=== PATIENT | male | born 1970 | race Native Hawaiian/Other Pacific Islander ===

== ENCOUNTER 2016-10-21 16:17 | Inpatient (IN) | payer OTHER ==
[2016-10-21 16:33] VITALS: BMI 16.1
[2016-10-21] MEDS ORDERED: Dextrose 5%/0.9% NS 1,000 ML IV ONE ×2 (17:23→21:18)
[2016-10-21 17:44] LABS: ADD MANUAL DIFF? NO
--- NOTE | 2016-10-21 17:48 | RAD ---
PROCEDURE: CHEST RADIOGRAPH, 1 VIEW HISTORY: neck tumor COMPARISON: None available. FINDINGS: LUNGS: The lungs are clear. PLEURA: No pneumothorax or pleural fluid seen. CARDIOVASCULAR: Normal. OSSEOUS STRUCTURES: Small areas of sclerosis in the right humeral head are statistically most compatible with bone islands. Otherwise, the osseous structures are within normal limits for the patient's age. VISUALIZED UPPER ABDOMEN: Normal. OTHER FINDINGS: None. IMPRESSION: No acute findings.
[2016-10-21 17:53] LABS: BASO # 0.1 K/uL (0.0-0.2); EOS # 0.2 K/uL (0.0-0.7); EOS % 3.3 % (0.0-4.0); HEMATOCRIT 30.5 % (35.0-51.0); LYMPH # 1.6 K/uL (1.0-4.3); LYMPH % 22.4 % (20.0-40.0); MEAN CELL VOLUME 89.4 fL (80.0-94.0); MEAN CORPUSCULAR HEMOGLOBIN 29.7 pg (27.0-31.0); MEAN CORPUSCULAR HGB CONC 33.2 g/dL (33.0-37.0); MEAN PLATELET VOLUME 7.2 fL (7.2-11.7); MONO % 13.5 % (0.0-10.0); PLATELET COUNT 372 K/uL (130-400); RED CELL DISTRIBUTION WIDTH 14.7 % (11.5-14.5); WHITE BLOOD COUNT 7.4 K/uL (4.8-10.8)
--- NOTE | 2016-10-21 18:11 | C.PDOC ---
History Of Present Illness 46 y/o male presents to the ED complaining of progressive dysphagia x 2 months. He states he cannot swallow solids, he can only swallow liquids, and sometimes he spits out blood. Patient is from [place] where he reports that he saw an ENT doctor who told him it looked like there is a tumor in his throat. Because the patient does not have relatives in [place] he decided to come here for further medical care. Patient notes that he went to a hospital in [place] when he got here and was told that he needed immediate admission but he decided to come to [place] instead because his friends and relatives are here. Patient denies chest pain, shortness of breath, or other complaints. Time Seen by Provider: 10/21/16 17:07 Chief Complaint (Nursing): ENT Problem History Per: Patient History/Exam Limitations: no limitations Onset/Duration Of Symptoms: Days (60), Persistent Current Symptoms Are (Timing): Still Present Recent travel outside of the [facility]: No Past Medical History Reviewed: Historical Data, Nursing Documentation, Vital Signs Vital Signs: Last Vital Signs Temp 98.3 F 10/21/16 16:32 Pulse 79 10/21/16 16:32 Resp 18 10/21/16 16:32 BP 124/87 10/21/16 16:32 Pulse Ox 100 10/21/16 18:16 - Medical History PMH: Fractures (hand) Other Surgeries: right kidney transplant Family History: States: No Known Family Hx - Social History Hx Tobacco Use: No Hx Alcohol Use: No Hx Substance Use: No - Immunization History Hx Tetanus Toxoid Vaccination: No Hx Influenza Vaccination: No Hx Pneumococcal Vaccination: No Review Of Systems Except As Marked, All Systems Reviewed And Found Negative. ENT: Positive for: Other (dysphagia; spitting out blood) Cardiovascular: Negative for: Chest Pain Respiratory: Negative for: Shortness of Breath Physical Exam - Physical Exam Appears: Non-toxic, No Acute Distress, Chronically Ill Skin: Normal Color, Warm, Dry Head: Atraumatic, Normacephalic Eye(s): bilateral: Normal Inspection, PERRL Oral Mucosa: Moist Throat: Normal, No Erythema, No Exudate, No Drooling, No Mass Neck: Normal ROM, Supple Chest: Symmetrical Cardiovascular: Rhythm Regular Respiratory: Normal Breath Sounds, No Rales, No Rhonchi, No Wheezing Gastrointestinal/Abdominal: Normal Exam, Soft, No Tenderness Back: Normal Inspection, No CVA Tenderness Extremity: Normal ROM, No Swelling Neurological/Psych: Oriented x3, Normal Speech, Normal Cognition ED Course And Treatment - Laboratory Results Result Diagrams: 10/21/16 17:43 10/21/16 18:20 O2 Sat by Pulse Oximetry: 100 (ra) Pulse Ox Interpretation: Normal - Other Rad Chest X-Ray X-Ray: Viewed By Me, Read By Radiologist Interpretation: Accession No. : [id number]. Patient Name / ID : JOHNSON RESENDIZ / [id number]. Exam Date : 10/21/2016 17:23:30 ( Approved ). Study Comment : Sex / Age : M / 46Y. Creator : SYDNI ESPARZA MD. Dictator : SYDNI ESPARZA MD. Boathouse Keeper : Reception Interviewer : SYDNI ESPARZA MD. Approver2 : Report Date : 10/21/2016 17:46:37. My Comment : . PROCEDURE: CHEST RADIOGRAPH, 1 VIEW. HISTORY: neck tumor. COMPARISON: None available. FINDINGS: LUNGS: The lungs are clear. PLEURA: No pneumothorax or pleural fluid seen. CARDIOVASCULAR: Normal. OSSEOUS STRUCTURES: Small areas of sclerosis in the right humeral head are statistically most compatible with bone islands. Otherwise, the osseous structures are within normal limits for the patient's age. VISUALIZED UPPER ABDOMEN: Normal. OTHER FINDINGS: None. IMPRESSION: No acute findings. Progress Note: CT Neck, Chest X-Ray, Blood Work, and Urinalysis were ordered. Patient was treated with Dextrose IV. Disposition - Disposition Disposition: HOSPITALIZED Disposition Time: 19:00 Condition: FAIR - Clinical Impression Clinical Impression: Dysphagia, Mass of throat - PA / COMMUNICATIONS LEAD / Resident Statement MD/DO has reviewed & agrees with the documentation as recorded. - Scribe Statement The provider has reviewed the documentation as recorded by the Scribe (Gregoria Diaz) All medical record entries made by the Scribe were at my direction and personally dictated by me. I have reviewed the chart and agree that the record accurately reflects my personal performance of the history, physical exam, medical decision making, and the department course for this patient. I have also personally directed, reviewed, and agree with the discharge instructions and disposition. Physician Patient Turnover Patient Signed Over To: Julio Bustos Handoff Comments: CT neck with IV contrast and dispo pending
[2016-10-21 18:22] LABS: BLOOD UREA NITROGEN 21 mg/dL (9-20); GFR AFRICAN-AMERICAN > 60; GLUCOSE,RANDOM 81 mg/dL (75-110); POTASSIUM 4.6 mmol/L (3.6-5.2); SODIUM 134 mmol/L (132-148)
[2016-10-21 18:23] LABS: ALB/GLOB RATIO 1.3 (1.0-2.1); ALKALINE PHOSPHATASE 58 U/L (38-126); ALT/SGPT 18 U/L (21-72); AST/SGOT 16 U/L (17-59); BILIRUBIN,TOTAL 0.3 mg/dL (0.2-1.3); CALCIUM 8.9 mg/dl (8.6-10.4); CARBON DIOXIDE 26 mmol/L (22-30); CHLORIDE 97 mmol/L (98-107); TOTAL PROTEIN 7.4 g/dL (6.3-8.3)
[2016-10-21] MEDS ORDERED: Iodixanol 320 mg/ml 150 ml Bottle IV ONE (18:45)
[2016-10-21 19:49] LABS: URINE BILIRUBIN NEGATIVE (NEGATIVE); URINE BLOOD NEGATIVE (NEGATIVE); URINE COLOR Colorless (YELLOW); URINE GLUCOSE (UA) NORMAL (Normal); URINE KETONE NEGATIVE (NEGATIVE); URINE LEUKOCYTE ESTERASE NEG Leu/uL (Negative); URINE PROTEIN NEGATIVE (NEGATIVE); URINE UROBILINOGEN NORMAL mg/dL (0.2-1.0); WBC URINE < 1 /hpf (0-5)
--- NOTE | 2016-10-21 21:04 | CP.PCM.HP ---
<VandanadasiaJamshid - Last Filed: 10/22/16 06:00> History of Present Illness - History of Present Illness History of Present Illness: CC: Dysphagia and mild throat pain x 2 months. HPI: 46 y/o male with PMHx CKD with Rt Kidney transplant - presents c/o progressive dysphagia to solids for the past 2 months. He states it became increasingly difficult to swallow solids, and has only been able to consume liquids for the past 10 days. He reports neck pain left/lateral to the cricoid, most notable to palpation and while swallowing, with associated intermittent hemoptysis for the last 2 months. Patient is from [place], and reports seeing an ENT physician 2 months ago, who explained he may have a throat tumor. The patient refused biopsy at that time, as his is in [place] and he requires her care. Instead, he decided to come to [place] where his brother lives. Patient notes going to a hospital in [place], was told that he needed immediate admission, and returned to [place]. Admits to dysphagia, sore throat, cough with intermittent hemoptysis, and weight loss (8lbs over 2 months) . Denies f/c, headache, change in vision, chest pain, SOB, abdominal pain, n/v, d/c, dysuria, or any additional complaints. PMHx: CKD with Rt Kidney transplant, Fracture of L 4th digit () PSHx: right kidney transplant Meds: Prednisone 5mg PO qd, Ferrous sulfate 325mg PO qd, Azithiprine 50mg PO qd Allergies: NKDA FamHx: unknown SocHx: denies Tobacco, ETOH, or drug use. Lives in [place], is current staying with brother in [place] for past 2 weeks. Works in IT. PMD: Dr. Sanchez ([phone]) Present on Admission - Present on Admission Any Indicators Present on Admission: No Review of Systems - Constitutional Constitutional: absent: Chills, Fever, Headache, Weakness - EENT Eyes: absent: Blurred Vision, Change in Vision Ears: absent: Ear Discharge, Ear Pain Nose/Mouth/Throat: Dysphagia, Odynophagia (mild with swallowing), Sore Throat, Neck Pain (Left lateral to cricoid), Neck Mass. absent: Nasal Congestion, Nasal Discharge - Cardiovascular Cardiovascular: absent: Chest Pain, Chest Pain at Rest, Diaphoresis, Dyspnea - Respiratory Respiratory: Cough, Hemoptysis. absent: Dyspnea, Stridor, Pain on Inspiration, Chest Congestion - Gastrointestinal Gastrointestinal: Dysphagia. absent: Abdominal Pain, Constipation, Diarrhea, Nausea, Vomiting - Musculoskeletal Musculoskeletal: absent: Arthralgias, Atrophy - Neurological Neurological: absent: Dizziness, Numbness, Focal Weakness - Psychiatric Psychiatric: absent: Anhedonia, Anxiety - Endocrine Endocrine: absent: Fatigue Past Patient History - Past Social History Smoking Status: Never Smoked - RENAL Hx Renal Failure: Yes (right kidney transplant) - MUSCULOSKELETAL/RHEUMATOLOGICAL Hx Fractures: Yes (hand) - PSYCHIATRIC Hx Substance Use: No - SURGICAL HISTORY Hx Kidney Transplant: Yes (right) - ANESTHESIA Hx Anesthesia: Yes Hx Anesthesia Reactions: No Meds Allergies/Adverse Reactions: Allergies Allergy/AdvReac Type Severity Reaction Status Date / Time No Known Allergies Allergy Verified 10/21/16 16:26 Physical Exam - Constitutional Appears: Non-toxic, No Acute Distress, Chronically Ill - Head Exam Head Exam: ATRAUMATIC, NORMAL INSPECTION - Eye Exam Eye Exam: EOMI, Normal appearance, PERRL - ENT Exam ENT Exam: Mucous Membranes Moist - Neck Exam Neck exam: Positive for: Tenderness (mild tenderness to palpation of neck - Left lateral to cricoid). Negative for: Lymphadenopathy, Thyromegaly Additional comments: -No blood visualized in oropharynx - Respiratory Exam Respiratory Exam: Clear to Auscultation Bilateral, NORMAL BREATHING PATTERN. absent: Wheezes - Cardiovascular Exam Cardiovascular Exam: REGULAR RHYTHM, +S1, +S2 - GI/Abdominal Exam GI & Abdominal Exam: Normal Bowel Sounds, Soft. absent: Tenderness - Extremities Exam Extremities exam: Positive for: normal inspection. Negative for: pedal edema, tenderness - Back Exam Back exam: NORMAL INSPECTION. absent: CVA tenderness (L), CVA tenderness (R) - Neurological Exam Neurological exam: Alert, CN II-XII Intact, Oriented x3, Reflexes Normal - Psychiatric Exam Psychiatric exam: Normal Affect, Normal Mood - Skin Skin Exam: Dry, Intact, Normal Color, Warm Results - Vital Signs Recent Vital Signs: Last Vital Signs Temp 98.3 F 10/21/16 16:32 Pulse 79 10/21/16 16:32 Resp 18 10/21/16 16:32 BP 124/87 10/21/16 16:32 Pulse Ox 100 10/21/16 18:38 - Labs Result Diagrams: 10/21/16 17:43 10/21/16 18:20 Assessment & Plan - Assessment and Plan (Free Text) Assessment: Throat Mass -Pt with throat mass, seen by ENT in [place] 07/2016. Patient refused biopsy at that time. -CXR - Negative (prelim read) -f/u CT neck with IV contrast (pending read) -UA - negative -NPO except meds -D5 NS at 100cc/hr -Heme-Onc Consult, Dr. Tavares, f/u recs -GI Consult, Dr. Mckinney, f/u recs -f/u CEA Dysphagia -See workup above for Throat Mass -Heme-Onc Consult, Dr. Tavares, f/u recs -GI Consult, Dr. Mckinney, f/u recs -D5 NS at 100cc/hr Chronic Kidney Disease with Rt Kidney Transplant - Azathiprine 50mg PO qd (home med) - prednisone 5mg PO qd - HOLD Enalapril 2.5mg PO qd (stopped by his physician 08/27/16 due to Hypotension ). - BUN/Cr - 21/1.4 Anemia -Hgb 10.1 -f/u Fe + TIBC, %sat, ferritin, B12, folate -f/u stool occult x2 Prophylaxis -SCDs -Hold anticoagulation due to hemoptysis - Date & Time Date: 10/21/16 Time: 21:00 <Mohan Moise - Last Filed: 10/22/16 06:19> Results - Vital Signs Recent Vital Signs: Last Vital Signs Temp 98 F 10/22/16 00:00 Pulse 75 10/22/16 00:00 Resp 20 10/22/16 00:00 BP 122/79 10/22/16 00:00 Pulse Ox 99 10/22/16 00:00 - Labs Result Diagrams: 10/21/16 17:43 10/21/16 18:20 Assessment & Plan - Date & Time Date: 10/22/16 (I have seen and examined the patient. I agree with the findings and plan of care as documented by Dr. Chang. Patient with throat mass and dysphagia. Consult to heme/onc and GI. NPO. History of chronic kidney disease. IVF. Monitor renal function. Anemia. Iron studies. Stool for OB. Monitor for acute changes.) Time: 06:18 Attending/Attestation - Attestation I have personally seen and examined this patient.: Yes I have fully participated in the care of the patient.: Yes I have reviewed all pertinent clinical information: Yes
[2016-10-21] MEDS: Dextrose 5%/0.9% NS 1,000 ML IV SCH (23:30)
[2016-10-22 06:55] LABS: BASO % 0.8 % (0.0-2.0); EOS # 0.1 K/uL (0.0-0.7); EOS % 2.1 % (0.0-4.0); HEMATOCRIT 31.2 % (35.0-51.0); LYMPH # 0.7 K/uL (1.0-4.3); LYMPH % 14.7 % (20.0-40.0); MEAN CELL VOLUME 89.4 fL (80.0-94.0); MEAN CORPUSCULAR HEMOGLOBIN 29.4 pg (27.0-31.0); MEAN CORPUSCULAR HGB CONC 32.9 g/dL (33.0-37.0); MEAN PLATELET VOLUME 7.5 fL (7.2-11.7); MONO # 0.7 K/uL (0.0-0.8); MONO % 12.9 % (0.0-10.0); RED CELL DISTRIBUTION WIDTH 15.1 % (11.5-14.5); WHITE BLOOD COUNT 5.1 K/uL (4.8-10.8)
[2016-10-22 07:20] LABS: CHLORIDE 102 mmol/L (98-107)
[2016-10-22 07:21] LABS: SODIUM 140 mmol/L (132-148)
[2016-10-22 07:22] LABS: POTASSIUM 4.2 mmol/L (3.6-5.2)
[2016-10-22 07:24] LABS: ALB/GLOB RATIO 1.3 (1.0-2.1); ALKALINE PHOSPHATASE 53 U/L (38-126); ALT/SGPT 16 U/L (21-72); AST/SGOT 12 U/L (17-59); BILIRUBIN,TOTAL 0.3 mg/dL (0.2-1.3); BLOOD UREA NITROGEN 16 mg/dL (9-20); CARBON DIOXIDE 25 mmol/L (22-30); GFR AFRICAN-AMERICAN > 60; GLUCOSE,RANDOM 114 mg/dL (75-110); PHOSPHOROUS 3.7 mg/dL (2.5-4.5); TOTAL PROTEIN 6.7 g/dL (6.3-8.3)
[2016-10-22 07:25] LABS: CALCIUM 8.5 mg/dl (8.6-10.4); MAGNESIUM 2.2 mg/dL (1.6-2.3)
[2016-10-22 07:56] LABS: CARCINOEMBRYONIC ANTIGEN 0.6 ng/mL (0-3.0)
[2016-10-22 08:31] LABS: FOLATE 5.6 ng/mL
[2016-10-22] MEDS: Dextrose 5%/0.9% NS 1,000 ML IV SCH ×2 (08:37→18:27)
--- NOTE | 2016-10-22 09:31 | CT ---
PROCEDURE: CT NECK WITH CONTRAST HISTORY: difficulty swallowing/weight loss COMPARISON: None TECHNIQUE: CT of the neck with intravenous contrast. Coronal and sagittal reformats generated. Intravenous contrast dose: 50 mL Visipaque 320 Radiation dose: DLP 252.01 mGy-cm This CT exam was performed using one or more of the following dose reduction techniques: Automated exposure control, adjustment of the mA and/or kV according to patient size, and/or use of iterative reconstruction technique. FINDINGS: NASOPHARYNX: Within normal limits SUPRAHYOID NECK: The oropharynx, oral cavity, parapharyngeal space and retropharyngeal space are within normal limits. INFRAHYOID NECK: There is a 1.9 x 3.7 x 5.6 cm lobular enhancing left glottic mass with supraglottic extension involving the paraglottic space and left aryepiglottic fold. There is also extension into the pre glottic space on the left side and invasion into the epiglottis on the left. The mass abuts the left thyroid cartilage however there is no evidence of of this destruction. GLANDS: Parotid and submandibular glands unremarkable. Normal size thyroid gland, without nodule. LYMPH NODES: There is a prominent left level 2 B lymph node measuring 5 mm in transverse dimension. CERVICAL SPINE: No fracture or focal lesion. VASCULAR STRUCTURES: Unremarkable. OTHER FINDINGS: None. 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 A preliminary report was provided by [facility].
--- NOTE | 2016-10-22 10:27 | CP.PCM.CON ---
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 Two months ago the patient began to have difficulty swallowing solids. In the time that has passed, he has had more and more difficulty tolerating solids to the point where he is forced to predominantly eat a liquid diet. He admits he is tolerating his daily medications by mouth but must crush/crew his pills in order to have them pass. He was evaluated by an ENT in [place], where the patient lives, who performed laryngoscopy with apparent visualization of a mass and recommended GI follow up. As patient di dnot have family support system, he opted to come to ID for ongoing care. He has not had GI evaluation for this issue and denies a history of endoscopy. There is no personal/family history of prior malignancy and the patient denies any obvious risk factors such as smoking/drinking. Other than dysphagia, he admits to sore throat, cough with intermittent hemoptysis and an 8 -12lb weight loss in the past 2 months due to poor intake. PMHx: Acute kidney failure requiring transplant; had congenital deformity born with one kindey PSHx: R kidney transplant FHx: Discussed with patient and denies any significant family history Social: Denies tobacco, ETOH or illicit drug use Endo: No prior endoscopic evaluation Review of Systems - Constitutional Constitutional: Weight Loss. absent: Anorexia, Chills, Fever - EENT Eyes: absent: Change in Vision Nose/Mouth/Throat: Sore Throat - Cardiovascular Cardiovascular: absent: Chest Pain, Dyspnea, Edema - Respiratory Respiratory: Cough, Hemoptysis. absent: Dyspnea - Gastrointestinal Gastrointestinal: Dysphagia. absent: Abdominal Pain, Constipation, Cramping, Diarrhea, Dyspepsia, Early Satiety, Hematemesis, Hematochezia, Loose Stools, Melena, Nausea, Odynophagia, Temesmus, Vomiting - Genitourinary Genitourinary: absent: Dysuria, Urinary Frequency, Urinary Urgency - Musculoskeletal Musculoskeletal: absent: Back Pain, Neck Pain - Integumentary Integumentary: absent: New Lesions, Rash - Neurological Neurological: absent: Dizziness, Numbness, Focal Weakness - Psychiatric Psychiatric: absent: Anxiety, Depression - Endocrine Endocrine: absent: Polydipsia, Polyphagia, Polyuria - Hematologic/Lymphatic Hematologic: absent: Easy Bleeding, Easy Bruising, Lymphadenopathy Past Patient History - Past Medical History & Family History Past Medical History?: Yes - Past Social History Smoking Status: Never Smoked - CARDIAC Hx Cardiac Disorders: No - PULMONARY Hx Respiratory Disorders: No - NEUROLOGICAL Hx Neurological Disorder: No - HEENT Hx HEENT Problems: No - RENAL Hx Renal Failure: Yes (right kidney transplant) - ENDOCRINE/METABOLIC Hx Endocrine Disorders: No - HEMATOLOGICAL/ONCOLOGICAL Hx Blood Disorders: No - INTEGUMENTARY Hx Dermatological Problems: No - MUSCULOSKELETAL/RHEUMATOLOGICAL Hx Fractures: Yes (hand) - GASTROINTESTINAL Hx Gastrointestinal Disorders: No - GENITOURINARY/GYNECOLOGICAL Hx Genitourinary Disorders: No - PSYCHIATRIC Hx Substance Use: No - SURGICAL HISTORY Hx Kidney Transplant: Yes (right) - ANESTHESIA Hx Anesthesia: Yes Hx Anesthesia Reactions: No Meds Allergies/Adverse Reactions: Allergies Allergy/AdvReac Type Severity Reaction Status Date / Time No Known Allergies Allergy Verified 10/21/16 16:26 - Medications Medications: Current Medications Azathioprine (Imuran) 50 mg PO DAILY [facility] Ferrous Sulfate (Feosol) 325 mg PO DAILY [facility] Dextrose/Sodium Chloride (Dextrose 5%/0.9% Ns 1000 Ml) 1,000 mls @ 100 mls/hr IV .Q10H [facility] Last Admin: 10/22/16 08:37 Dose: 100 mls/hr Pneumococcal Polyvalent Vaccine (Pneumovax 23 Vaccine) 0.5 ml IM .ONCE ONE Stop: 10/23/16 10:01 Prednisone (Prednisone Tab) 5 mg PO DAILY [facility] Physical Exam - Constitutional Appears: Non-toxic, No Acute Distress - Eye Exam Eye Exam: EOMI, PERRL - ENT Exam ENT Exam: Mucous Membranes Moist, Normal Oropharynx - Respiratory Exam Respiratory Exam: Clear to Auscultation Bilateral. absent: Rales, Rhonchi, Wheezes - Cardiovascular Exam Cardiovascular Exam: RRR, +S1, +S2 - GI/Abdominal Exam GI & Abdominal Exam: Normal Bowel Sounds, Soft. absent: Distended, Firm, Guarding, Organomegaly, Rigid, Tenderness - Extremities Exam Extremities exam: Positive for: normal inspection. Negative for: pedal edema - Neurological Exam Neurological exam: Alert, Oriented x3 - Psychiatric Exam Psychiatric exam: Normal Affect, Normal Mood - Skin Skin Exam: Dry, Warm Results - Vital Signs Recent Vital Signs: Last Vital Signs Temp 97.4 F L 10/22/16 08:20 Pulse 73 10/22/16 08:20 Resp 20 10/22/16 08:20 BP 116/74 10/22/16 08:20 Pulse Ox 100 10/22/16 08:20 - Labs Result Diagrams: 10/22/16 06:30 10/22/16 06:30 Labs: Laboratory Results - last 24 hr 10/22/16 10/22/16 06:30 06:30 WBC 5.1 RBC 3.49 L Hgb 10.2 L Hct 31.2 L MCV 89.4 MCH 29.4 MCHC 32.9 L RDW 15.1 H Plt Count 350 MPV 7.5 Neut % (Auto) 69.5 Lymph % (Auto) 14.7 L [place] % (Auto) 12.9 H Eos % (Auto) 2.1 Baso % (Auto) 0.8 Neut # 3.5 Lymph # 0.7 L [place] # 0.7 Eos # 0.1 Baso # 0.0 Sodium 140 Potassium 4.2 Chloride 102 Carbon Dioxide 25 Anion Gap 17 BUN 16 Creatinine 1.2 Est GFR ( Amer) > 60 Est GFR (Non-Af Amer) > 60 Random Glucose 114 H Calcium 8.5 L Phosphorus 3.7 Magnesium 2.2 Ferritin 37.9 Total Bilirubin 0.3 AST 12 L D ALT 16 L Alkaline Phosphatase 53 Total Protein 6.7 Albumin 3.8 Globulin 2.9 Albumin/Globulin Ratio 1.3 Carcinoembryonic Ag 0.6 Vitamin B12 282 Folate 5.6 Assessment & Plan - Assessment and Plan (Free Text) Assessment: Patient is a 46yo male with PMHx significant for 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 -Progressive dysphagia -Large subglottic lesion noted on CT neck -S/P kidney transplant on immunosuppressive therapy Plan: -Plan for urgent endoscopy today, plan per findings though obvious concern is for malignant process -Maintain NPO, last meal at 7PM last night -Recommend continuation of patient's immunosuppressive medications to prevent rejection of transplanted organ - Date & Time Date: 10/22/16 Time: 06:40 <Isaura Stearns - Last Filed: 10/22/16 11:31> Meds - Medications Medications: Current Medications Azathioprine (Imuran) 50 mg PO DAILY [facility] Last Admin: 10/22/16 11:02 Dose: 50 mg Ferrous Sulfate (Feosol) 325 mg PO DAILY [facility] Last Admin: 10/22/16 11:02 Dose: 325 mg Dextrose/Sodium Chloride (Dextrose 5%/0.9% Ns 1000 Ml) 1,000 mls @ 100 mls/hr IV .Q10H [facility] Last Admin: 10/22/16 08:37 Dose: 100 mls/hr Pneumococcal Polyvalent Vaccine (Pneumovax 23 Vaccine) 0.5 ml IM .ONCE ONE Stop: 10/23/16 10:01 Prednisone (Prednisone Tab) 5 mg PO DAILY [facility] Last Admin: 10/22/16 11:03 Dose: 5 mg Results - Vital Signs Recent Vital Signs: Last Vital Signs Temp 97.4 F L 10/22/16 08:20 Pulse 73 10/22/16 08:20 Resp 20 10/22/16 08:20 BP 116/74 10/22/16 08:20 Pulse Ox 100 10/22/16 08:20 - Labs Result Diagrams: 10/22/16 06:30 10/22/16 06:30 Labs: Laboratory Results - last 24 hr 10/22/16 10/22/16 06:30 06:30 WBC 5.1 RBC 3.49 L Hgb 10.2 L Hct 31.2 L MCV 89.4 MCH 29.4 MCHC 32.9 L RDW 15.1 H Plt Count 350 MPV 7.5 Neut % (Auto) 69.5 Lymph % (Auto) 14.7 L [place] % (Auto) 12.9 H Eos % (Auto) 2.1 Baso % (Auto) 0.8 Neut # 3.5 Lymph # 0.7 L [place] # 0.7 Eos # 0.1 Baso # 0.0 Sodium 140 Potassium 4.2 Chloride 102 Carbon Dioxide 25 Anion Gap 17 BUN 16 Creatinine 1.2 Est GFR ( Amer) > 60 Est GFR (Non-Af Amer) > 60 Random Glucose 114 H Calcium 8.5 L Phosphorus 3.7 Magnesium 2.2 Ferritin 37.9 Total Bilirubin 0.3 AST 12 L D ALT 16 L Alkaline Phosphatase 53 Total Protein 6.7 Albumin 3.8 Globulin 2.9 Albumin/Globulin Ratio 1.3 Carcinoembryonic Ag 0.6 Vitamin B12 282 Folate 5.6 Attending/Attestation - Attestation I have personally seen and examined this patient.: Yes I have fully participated in the care of the patient.: Yes I have reviewed all pertinent clinical information: Yes Notes (Text): Patient seen and examined with GI fellow. Agree with his note as documented above with the following additions/exceptions. This is a 46 year old male with h/o transplanted kidney 1990 on immunosuppressants (azathioprine/prednisone) who presents with progressive dysphagia/weight loss. He was apparently evaluated by ENT in [place] with laryngoscopy and found to have large mass and advised GI evaluation. CT neck shows large subglottic lesion. He is tolerating liquids but has difficulty with solid foods. Recommend repeat ENT evaluation, keep NPO will plan for EGD evaluation today. Continue immunosuppresant therapy for transplanted kidney. 10/22/16 11:30
[2016-10-22] MEDS ORDERED: Propofol 10 mg/ml Inj (20 ML) ONE (13:27)
--- NOTE | 2016-10-22 16:40 | CP.PCM.PN ---
<MalManjit - Last Filed: 10/22/16 16:40> Subjective - Date & Time of Evaluation Date of Evaluation: 10/22/16 Time of Evaluation: 07:45 - Subjective Subjective: PGY-1 Medicine Progress Note for Dr. Hutton Patient seend and examined at bedside. No acute event overnight. Patient resting in comfrtably. Patient still cannot eat solids. Patient went for egd today with Dr. Stearns. Denied fever/chills, cp, sob, palpitations, abd pain , n/v/d. Objective - Vital Signs/Intake and Output Vital Signs (last 24 hours): Temp Pulse Resp BP Pulse Ox 97.1 F L 71 15 118/71 100 10/22/16 14:28 10/22/16 14:28 10/22/16 14:28 10/22/16 14:28 10/22/16 14:28 Intake and Output: 10/22/16 10/22/16 06:59 18:59 Intake Total 3300 Output Total 1250 Balance 2049 - Medications Medications: Current Medications Azathioprine (Imuran) 50 mg PO DAILY [facility] Last Admin: 10/22/16 11:02 Dose: 50 mg Ferrous Sulfate (Feosol) 325 mg PO DAILY [facility] Last Admin: 10/22/16 11:02 Dose: 325 mg Heparin Sodium (Porcine) (Heparin) 5,000 units SC Q8 [facility] Dextrose/Sodium Chloride (Dextrose 5%/0.9% Ns 1000 Ml) 1,000 mls @ 100 mls/hr IV .Q10H [facility] Last Admin: 10/22/16 08:37 Dose: 100 mls/hr Pneumococcal Polyvalent Vaccine (Pneumovax 23 Vaccine) 0.5 ml IM .ONCE ONE Stop: 10/23/16 10:01 Prednisone (Prednisone Tab) 5 mg PO DAILY [facility] Last Admin: 10/22/16 11:03 Dose: 5 mg - Labs Labs: 10/22/16 06:30 10/22/16 06:30 - Constitutional Appears: No Acute Distress - Head Exam Head Exam: ATRAUMATIC, NORMOCEPHALIC - Eye Exam Eye Exam: EOMI, Normal appearance Pupil Exam: PERRL - ENT Exam ENT Exam: Mucous Membranes Moist Additional comments: No blood visualized in oropharynx - Neck Exam Neck Exam: Tenderness (mild tenderness to palpation of neck - Left lateral to cricoid) - Respiratory Exam Respiratory Exam: Clear to Ausculation Bilateral, NORMAL BREATHING PATTERN - Cardiovascular Exam Cardiovascular Exam: REGULAR RHYTHM, +S1, +S2 - GI/Abdominal Exam GI & Abdominal Exam: Soft, Normal Bowel Sounds. absent: Tenderness - Extremities Exam Extremities Exam: Normal Capillary Refill. absent: Calf Tenderness - Back Exam Back Exam: absent: CVA tenderness (L), CVA tenderness (R) - Neurological Exam Neurological Exam: Alert, Awake, CN II-XII Intact, Oriented x3 - Psychiatric Exam Psychiatric exam: Normal Affect, Normal Mood - Skin Skin Exam: Dry, Intact, Normal Color, Warm Assessment and Plan - Assessment and Plan (Free Text) Plan: 1. Throat Mass EGD today with biopsy showed medium sized exophytic mass fouind on anterior surface of epiglottis, partially obstructing airway (see full report) Pt with throat mass, seen by ENT in [place] 07/2016. Patient refused biopsy at that time. CXR: Negative (prelim read) CT neck with IV contrast: shows supraepilgotic mass (see full report) UA negative D5 NS at 100cc/hr Heme/Onc Consult, Dr. Tavares, help appreciated GI Consult, Dr. Mckinney, help appreciated CEA 0.6 2. Dysphagia See workup above for Throat Mass Heme/Onc Consult, Dr. Tavares, help appreciated GI Consult, Dr. Mckinney, help appreciated D5 NS at 100cc/hr 3. Chronic Kidney Disease with Rt Kidney Transplant Azathiprine 50mg PO qd (home med) prednisone 5mg PO qd HOLD Enalapril 2.5mg PO qd (stopped by his physician 08/27/16 due to Hypotension). BUN/Cr 21/1.4 4. Anemia Hgb 10.2 f/u Fe, TIBC %sat 18, ferritin 37.9, B12 282, folate 5.6 f/u stool occult x2 5. Prophylactic Measures SCDs Hold anticoagulation due to hemoptysis CLD <Dione Hutton V - Last Filed: 10/22/16 22:39> Objective - Vital Signs/Intake and Output Vital Signs (last 24 hours): Temp Pulse Resp BP Pulse Ox 98 F 68 20 118/71 97 10/22/16 15:20 10/22/16 15:20 10/22/16 15:20 10/22/16 14:28 10/22/16 15:20 Intake and Output: 10/22/16 10/23/16 18:59 06:59 Intake Total 3300 800 Output Total 1250 Balance 2050 800 - Medications Medications: Current Medications Azathioprine (Imuran) 50 mg PO DAILY [facility] Last Admin: 10/22/16 11:02 Dose: 50 mg Ferrous Sulfate (Feosol) 325 mg PO DAILY [facility] Last Admin: 10/22/16 11:02 Dose: 325 mg Dextrose/Sodium Chloride (Dextrose 5%/0.9% Ns 1000 Ml) 1,000 mls @ 100 mls/hr IV .Q10H [facility] Last Admin: 10/22/16 18:27 Dose: Not Given Pneumococcal Polyvalent Vaccine (Pneumovax 23 Vaccine) 0.5 ml IM .ONCE ONE Stop: 10/23/16 10:01 Prednisone (Prednisone Tab) 5 mg PO DAILY [facility] Last Admin: 10/22/16 11:03 Dose: 5 mg - Labs Labs: 10/22/16 06:30 10/22/16 06:30 Attending/Attestation - Attestation I have personally seen and examined this patient.: Yes I have fully participated in the care of the patient.: Yes I have reviewed all pertinent clinical information, including history, physical exam and plan: Yes Notes (Text): Patient seen, examined, and case discussed with day-time resident. Patient seen status EGD& biopsy of supraglottic mass. Patient awake, alert, oriented, speaking in clear sentences. Will need to await pathology. Patient permits us to speak with his brother regarding her health information, and does not want us to speak with his , given she has disability, and hard of hearing. Discussed ENT, no further intervention given patient s/p EGD and biospy today Follow-up heme-onc. Assessment/Plan 1. Supraglottic mass EGD (10/22/16) with biopsy showed medium sized exophytic mass fouind on anterior surface of epiglottis, partially obstructing airway (see full report)-->f/u biospy Pt with throat mass, seen by ENT in [place] 07/2016. Patient refused biopsy at that time. CXR: Negative (prelim read) CT neck with IV contrast (10/21/16): shows supraepilgotic mass (see full report) UA negative D5 NS at 100cc/hr Heme/Onc Consult, Dr. Tavares, help appreciated GI Consult, Dr. Mckinney, help appreciated ENT consult, Dr. Coy, help appreciated-->no further intervention, patient s/p EGD and biopsy CEA 0.6 2. Dysphagia See workup above for Supraglottic mass Heme/Onc Consult, Dr. Tavares, help appreciated GI Consult, Dr. Mckinney, help appreciated D5 NS at 100cc/hr 3. History of Rt Kidney Transplant Azathiprine 50mg PO qdaily (home med) prednisone 5mg PO qdaily HOLD Enalapril 2.5mg PO qd (stopped by his physician 08/27/16 due to Hypotension). BUN/Cr 21/1.4 EGF>60 HIV: negative on IV fluids 4. Anemia Hgb 10.2 f/u Fe, TIBC %sat 18, ferritin 37.9, B12 282, folate 5.6 f/u stool occult x2 5. Prophylactic Measures SCDs Hold anticoagulation due to hemoptysis CLD f/u GI for peg placement
--- NOTE | 2016-10-22 19:29 | CP.PCM.CON ---
History of Present Illness - History of Present Illness History of Present Illness: Oncology Consult Referred by Dr. Moise for glottic mass HPI- Mr Alva is 46 y/o M with h/o solitary kidney (right), right kidney transplant (currently on Prednisone and Azathioprine) who was admitted with progressive dysphagia for 2 months with 6-7 lbs weight loss. He also complains of pain in neck area and intermittent hemoptysis. Denies nausea, vomiting, altered bowel movements. Denies fever, chills. He is originally from [place] and went to see ENT there. As per records, he had a laryngoscopy but there is no reports of biopsy. He is here currently with his brother. On admission, Ct neck showed a 1.9 x 3.7 x 5.6 cm glottic mass with supraglottic extension involving paraglottic space and invasion into the epiglottis. There was a 5 mm lymph node at level 2B on left. He underwent EGD today and biopsy of this mass. Esophagus was normal and there was diffuse mild inflammation in stomach. He denies any history of smoking or oral tobacco use. Family and Social history reviewed and not contributory. Review of Systems - Review of Systems All systems: reviewed and no additional remarkable complaints except Review of Systems: as in HPI Past Patient History - Past Medical History & Family History Past Medical History?: Yes - Past Social History Smoking Status: Never Smoked - CARDIAC Hx Cardiac Disorders: No - PULMONARY Hx Respiratory Disorders: No - NEUROLOGICAL Hx Neurological Disorder: No - HEENT Hx HEENT Problems: No - RENAL Hx Renal Failure: Yes (right kidney transplant) - ENDOCRINE/METABOLIC Hx Endocrine Disorders: No - HEMATOLOGICAL/ONCOLOGICAL Hx Blood Disorders: No - INTEGUMENTARY Hx Dermatological Problems: No - MUSCULOSKELETAL/RHEUMATOLOGICAL Hx Fractures: Yes (hand) - GASTROINTESTINAL Hx Gastrointestinal Disorders: No - GENITOURINARY/GYNECOLOGICAL Hx Genitourinary Disorders: No - PSYCHIATRIC Hx Substance Use: No - SURGICAL HISTORY Hx Kidney Transplant: Yes (right) - ANESTHESIA Hx Anesthesia: Yes Hx Anesthesia Reactions: No Meds Allergies/Adverse Reactions: Allergies Allergy/AdvReac Type Severity Reaction Status Date / Time No Known Allergies Allergy Verified 10/21/16 16:26 - Medications Medications: Current Medications Azathioprine (Imuran) 50 mg PO DAILY [facility] Last Admin: 10/22/16 11:02 Dose: 50 mg Ferrous Sulfate (Feosol) 325 mg PO DAILY [facility] Last Admin: 10/22/16 11:02 Dose: 325 mg Dextrose/Sodium Chloride (Dextrose 5%/0.9% Ns 1000 Ml) 1,000 mls @ 100 mls/hr IV .Q10H [facility] Last Admin: 10/22/16 18:27 Dose: Not Given Pneumococcal Polyvalent Vaccine (Pneumovax 23 Vaccine) 0.5 ml IM .ONCE ONE Stop: 10/23/16 10:01 Prednisone (Prednisone Tab) 5 mg PO DAILY [facility] Last Admin: 10/22/16 11:03 Dose: 5 mg Physical Exam - Head Exam Head Exam: ATRAUMATIC, NORMAL INSPECTION - Eye Exam Eye Exam: EOMI, PERRL - ENT Exam ENT Exam: Mucous Membranes Moist - Neck Exam Neck exam: Negative for: Lymphadenopathy - Respiratory Exam Respiratory Exam: Clear to Auscultation Bilateral - Cardiovascular Exam Cardiovascular Exam: REGULAR RHYTHM - GI/Abdominal Exam GI & Abdominal Exam: Normal Bowel Sounds, Soft. absent: Organomegaly, Tenderness - Extremities Exam Extremities exam: Negative for: pedal edema Results - Vital Signs Recent Vital Signs: Last Vital Signs Temp 97.1 F L 10/22/16 14:28 Pulse 71 10/22/16 14:28 Resp 15 10/22/16 14:28 BP 118/71 10/22/16 14:28 Pulse Ox 100 10/22/16 14:28 - Labs Result Diagrams: 10/22/16 06:30 10/22/16 06:30 Labs: Laboratory Results - last 24 hr 10/22/16 10/22/16 10/22/16 06:30 06:30 10:57 WBC 5.1 RBC 3.49 L Hgb 10.2 L Hct 31.2 L MCV 89.4 MCH 29.4 MCHC 32.9 L RDW 15.1 H Plt Count 350 MPV 7.5 Neut % (Auto) 69.5 Lymph % (Auto) 14.7 L Robertson % (Auto) 12.9 H Eos % (Auto) 2.1 Baso % (Auto) 0.8 Neut # 3.5 Lymph # 0.7 L Robertson # 0.7 Eos # 0.1 Baso # 0.0 Sodium 140 Potassium 4.2 Chloride 102 Carbon Dioxide 25 Anion Gap 17 BUN 16 Creatinine 1.2 Est GFR ( Amer) > 60 Est GFR (Non-Af Amer) > 60 Random Glucose 114 H Calcium 8.5 L Phosphorus 3.7 Magnesium 2.2 % Saturation 18 L Ferritin 37.9 Total Bilirubin 0.3 AST 12 L D ALT 16 L Alkaline Phosphatase 53 Total Protein 6.7 Albumin 3.8 Globulin 2.9 Albumin/Globulin Ratio 1.3 Carcinoembryonic Ag 0.6 Vitamin B12 282 Folate 5.6 HIV 1&2 Antibody Screen 10/22/16 10:57 WBC RBC Hgb Hct MCV MCH MCHC RDW Plt Count MPV Neut % (Auto) Lymph % (Auto) Robertson % (Auto) Eos % (Auto) Baso % (Auto) Neut # Lymph # Robertson # Eos # Baso # Sodium Potassium Chloride Carbon Dioxide Anion Gap BUN Creatinine Est GFR ( Amer) Est GFR (Non-Af Amer) Random Glucose Calcium Phosphorus Magnesium % Saturation Ferritin Total Bilirubin AST ALT Alkaline Phosphatase Total Protein Albumin Globulin Albumin/Globulin Ratio Carcinoembryonic Ag Vitamin B12 Folate HIV 1&2 Antibody Screen Negative Assessment & Plan - Assessment and Plan (Free Text) Assessment: Glottic mass, high suspicion for malignancy, clinically T3 lesion. No clear risk factors for glottic cancer, may be HPV driven or other exposures ( second hand smoke, occupational exposure etc.). It is not clear what immunosuppresive treatments he received in past (for renal transplant) and if they had any causative influence. s/p biopsy, will await confirmation. ENT consult He will need initial staging work up with PET/CT scan (can be done as outpatient ). I had a long discussion with him regarding current findings and need for multi- disciplinary treatment. He is unsure at this stage if he would like to pursue treatment in [place] vs [place]. He will discuss with his family and get back to us. Continue to monitor for oral nutritional intake. He will likely benefit from PEG tube (while planning treatment) All his questions were answered. Thank you for the consult Felipe Tavares
[2016-10-22 20:19] VITALS: RESP 20
--- NOTE | 2016-10-22 20:47 | CON ---
DATE: 10/22/2016 REASON FOR CONSULTATION: Throat mass. HISTORY OF PRESENT ILLNESS: This is a 46-year-old male with a multiple week history of dysphagia whi ch is worsening. It is constant, moderate in intensity. No hoarseness. PAST MEDICAL HISTORY: As noted on the chart by me. MEDICATIONS: As noted on the chart by me. PHYSICAL EXAMINATION: HEAD: Atraumatic, also normocephalic. FACE: Good facial movements bilaterally. CONSTITUTIONAL: The patient is emaciated. COMMUNICATION: Communicates very appropriately. EXTERNAL NOSE AND EARS: No masses, no lesions, no erythema, no edema. INTERNAL NOSE: Deviated septum, no masses, no lesions, no erythema, no edema. ORAL CAVITY, OROPHARYNX: No masses, no lesions, no erythema, no edema. LIPS, GUMS: No masses, no lesions, no erythema, no edema. NECK: Supple. THYROID: No thyromegaly, no goiter. LYMPH NODES: No lymphadenopathy of the neck. IMAGING: CAT scan of the neck was reviewed by me, which reveals large left AE/epiglottic fold mass. PLAN: The patient needs to have a biopsy done as he has not had one done yet. The patient states th at he has already been biopsied; however, I do not see report yet in the computer. I will contact th e patient's admitting physician to see if the patient had a biopsy done or not. Andi Coy MD cc: [id number] TT: 10/22/2016 20:46:53 Confirmation # [id number] Dictation # [id number]
[2016-10-23] MEDS: Dextrose 5%/0.9% NS 1,000 ML IV SCH ×2 (05:13→14:15)
[2016-10-23 07:15] LABS: INR 1.1
[2016-10-23 07:40] LABS: BASO % 0.8 % (0.0-2.0); EOS # 0.1 K/uL (0.0-0.7); EOS % 2.6 % (0.0-4.0); HEMATOCRIT 29.2 % (35.0-51.0); LYMPH # 1.4 K/uL (1.0-4.3); LYMPH % 25.6 % (20.0-40.0); MEAN CELL VOLUME 89.8 fL (80.0-94.0); MEAN CORPUSCULAR HEMOGLOBIN 29.8 pg (27.0-31.0); MEAN CORPUSCULAR HGB CONC 33.1 g/dL (33.0-37.0); MEAN PLATELET VOLUME 7.8 fL (7.2-11.7); MONO # 0.7 K/uL (0.0-0.8); RED CELL DISTRIBUTION WIDTH 14.6 % (11.5-14.5); WHITE BLOOD COUNT 5.4 K/uL (4.8-10.8)
[2016-10-23 07:44] LABS: CHLORIDE 107 mmol/L (98-107); POTASSIUM 4.2 mmol/L (3.6-5.2); SODIUM 142 mmol/L (132-148)
[2016-10-23 07:46] LABS: BILIRUBIN,TOTAL 0.5 mg/dL (0.2-1.3); GFR AFRICAN-AMERICAN > 60
[2016-10-23 07:47] LABS: ALB/GLOB RATIO 1.2 (1.0-2.1); ALKALINE PHOSPHATASE 53 U/L (38-126); ALT/SGPT 15 U/L (21-72); AST/SGOT 13 U/L (17-59); BLOOD UREA NITROGEN 12 mg/dL (9-20); CALCIUM 8.4 mg/dl (8.6-10.4); CARBON DIOXIDE 25 mmol/L (22-30); GLUCOSE,RANDOM 96 mg/dL (75-110); PHOSPHOROUS 2.8 mg/dL (2.5-4.5); TOTAL PROTEIN 6.3 g/dL (6.3-8.3)
[2016-10-23 07:48] LABS: MAGNESIUM 2.1 mg/dL (1.6-2.3)
--- NOTE | 2016-10-23 08:20 | CP.PCM.PN ---
<Bennett Yang - Last Filed: 10/23/16 08:17> Subjective - Date & Time of Evaluation Date of Evaluation: 10/23/16 Time of Evaluation: 06:10 - Subjective Subjective: PGY4 GI Fellow Progress Note Patient seen and examined bedside this morning. The patient states he was unable to tolerate puree, though unclear as to why given he can tolerate liquids and thicker shakes (Boost) without issue. He is unsure as to whether or not he will remain in [place] or go back to [place]; states decision will be made pending plan for treatment once diagnosis is clear. No other events overnight. 12 system ROS performed and negative except where stated. Objective - Vital Signs/Intake and Output Vital Signs (last 24 hours): Temp Pulse Resp BP Pulse Ox 98.2 F 69 20 128/70 98 10/23/16 00:18 10/23/16 00:18 10/23/16 00:18 10/23/16 00:18 10/23/16 00:18 Intake and Output: 10/23/16 10/23/16 06:59 18:59 Intake Total 2840 Balance 2840 - Medications Medications: Current Medications Azathioprine (Imuran) 50 mg PO DAILY [facility] Last Admin: 10/22/16 11:02 Dose: 50 mg Ferrous Sulfate (Feosol) 325 mg PO DAILY [facility] Last Admin: 10/22/16 11:02 Dose: 325 mg Dextrose/Sodium Chloride (Dextrose 5%/0.9% Ns 1000 Ml) 1,000 mls @ 100 mls/hr IV .Q10H [facility] Last Admin: 10/23/16 05:13 Dose: 100 mls/hr Pneumococcal Polyvalent Vaccine (Pneumovax 23 Vaccine) 0.5 ml IM .ONCE ONE Stop: 10/23/16 10:01 Prednisone (Prednisone Tab) 5 mg PO DAILY [facility] Last Admin: 10/22/16 11:03 Dose: 5 mg - Labs Labs: 10/23/16 06:52 10/23/16 06:52 PT 11.8 SECONDS (9.7-12.2) 10/23/16 06:52 INR 1.1 10/23/16 06:52 - Constitutional Appears: Non-toxic, No Acute Distress, Other (thin) - Eye Exam Eye Exam: EOMI, PERRL - ENT Exam ENT Exam: Mucous Membranes Moist - Respiratory Exam Respiratory Exam: Clear to Ausculation Bilateral. absent: Rales, Rhonchi, Wheezes - Cardiovascular Exam Cardiovascular Exam: RRR, +S1, +S2 - GI/Abdominal Exam GI & Abdominal Exam: Soft, Normal Bowel Sounds. absent: Distended, Firm, Guarding, Rigid, Tenderness, Organomegaly - Extremities Exam Extremities Exam: Normal Inspection. 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 -Progressive dysphagia -Large subglottic lesion noted on CT neck/EGD -S/P kidney transplant on immunosuppressive therapy Plan: -S/P EGD with biopsy of subglottic lesion, awaiting pathology report -Appreciate Oncology evaluation -Patient would likely benefit from PEG insertion to augment calorie intake given difficulty eating, inability to tolerate puree -Continue to supplement diet with Boost TID -Patient is clear for D/C from GI standpoint; given information for follow up as outpatient for consideration of PEG placement <Tan Mckinney - Last Filed: 10/23/16 13:52> Objective - Vital Signs/Intake and Output Vital Signs (last 24 hours): Temp Pulse Resp BP Pulse Ox 98.4 F 77 20 127/85 98 10/23/16 08:00 10/23/16 08:00 10/23/16 08:00 10/23/16 08:00 10/23/16 08:00 Intake and Output: 10/23/16 10/23/16 06:59 18:59 Intake Total 2840 Balance 2840 - Medications Medications: Current Medications Azathioprine (Imuran) 50 mg PO DAILY [facility] Last Admin: 10/23/16 09:55 Dose: 50 mg Ferrous Sulfate (Feosol) 325 mg PO DAILY [facility] Last Admin: 10/23/16 09:55 Dose: 325 mg Dextrose/Sodium Chloride (Dextrose 5%/0.9% Ns 1000 Ml) 1,000 mls @ 100 mls/hr IV .Q10H [facility] Last Admin: 10/23/16 05:13 Dose: 100 mls/hr Prednisone (Prednisone Tab) 5 mg PO DAILY [facility] Last Admin: 10/23/16 09:55 Dose: 5 mg - Labs Labs: 10/23/16 06:52 10/23/16 06:52 PT 11.8 SECONDS (9.7-12.2) 10/23/16 06:52 INR 1.1 10/23/16 06:52 Attending/Attestation - Attestation I have personally seen and examined this patient.: Yes I have fully participated in the care of the patient.: Yes I have reviewed all pertinent clinical information, including history, physical exam and plan: Yes Notes (Text): 10/23/16 13:48 I have seen and examined patient with GI fellow. No acute events overnight, he is seen ambulating in room and appears quite comfortable. He denies abdominal pain, nausea, vomiting, fever/chills. He was placed on puree consistency diet, though developed cough and has since been changed back to liquid diet which he is tolerating. Review of vitals from today are normal. s/p kidney transplant on immunosuppressive therapy Dysphagia s/p EGD showing clif-epiglottic lesion s/p biopsy - Liquid diet as tolerated, may supplement with Ensure/boost - Awaiting biopsy results from EGD - Follow up ENT and oncology recommendations - Discussed with patient regarding potential need of gastrostomy placement given ongoing inability to tolerate PO diet and likely halfway treatment of suspected malignancy. He will await results of biopsy before making any further decisions. He is also considering having his care continued in his home [facility]. From GI perspective, ok to discharge home with subsequent outpatient follow up.
[2016-10-23] MEDS ORDERED: Enoxaparin 40 mg Syringe SC SCH (10:00)
[2016-10-23] MEDS ORDERED: Pneumococcal 23-Valent Vaccine IM ONE (10:00)
--- NOTE | 2016-10-23 13:17 | CP.PCM.PN ---
<TristanjonathanjolantaManjit myers - Last Filed: 10/23/16 13:48> Subjective - Date & Time of Evaluation Date of Evaluation: 10/23/16 Time of Evaluation: 07:40 - Subjective Subjective: PGY-1 Medicine Progress Note for Dr. Hutton Patient seen and examined at bedside. No acute events overnight. The patient is feeling better but notes that he still is coughing bloody sputum. He has not been able to tolerate purees and is still only taking in clear liquids. He has had normal bowel movements and denies any complaints other than some pain with swallowing. GI saw the patient today and cleared him, with a recommendation for an outpatient PEG tube for nutritional needs. Pt denies chest pain, headaches, abdominal pain, fever, chills, nausea, vomiting, diarrhea, constipation. Objective - Vital Signs/Intake and Output Vital Signs (last 24 hours): Temp Pulse Resp BP Pulse Ox 98.4 F 77 20 127/85 98 10/23/16 08:00 10/23/16 08:00 10/23/16 08:00 10/23/16 08:00 10/23/16 08:00 Intake and Output: 10/23/16 10/23/16 06:59 18:59 Intake Total 2840 Balance 2840 - Medications Medications: Current Medications Azathioprine (Imuran) 50 mg PO DAILY [facility] Last Admin: 10/23/16 09:55 Dose: 50 mg Ferrous Sulfate (Feosol) 325 mg PO DAILY [facility] Last Admin: 10/23/16 09:55 Dose: 325 mg Dextrose/Sodium Chloride (Dextrose 5%/0.9% Ns 1000 Ml) 1,000 mls @ 100 mls/hr IV .Q10H [facility] Last Admin: 10/23/16 05:13 Dose: 100 mls/hr Prednisone (Prednisone Tab) 5 mg PO DAILY [facility] Last Admin: 10/23/16 09:55 Dose: 5 mg - Labs Labs: 10/23/16 06:52 10/23/16 06:52 PT 11.8 SECONDS (9.7-12.2) 10/23/16 06:52 INR 1.1 10/23/16 06:52 - Constitutional Appears: No Acute Distress, Cachectic - Head Exam Head Exam: ATRAUMATIC, NORMAL INSPECTION, NORMOCEPHALIC - Eye Exam Eye Exam: EOMI, PERRL - ENT Exam ENT Exam: Mucous Membranes Moist - Neck Exam Neck Exam: Full ROM. absent: Thyromegaly - Respiratory Exam Respiratory Exam: Clear to Ausculation Bilateral. absent: Rales, Rhonchi, Wheezes - Cardiovascular Exam Cardiovascular Exam: REGULAR RHYTHM, +S1, +S2 - GI/Abdominal Exam GI & Abdominal Exam: Soft, Normal Bowel Sounds. absent: Guarding, Tenderness, Organomegaly, Rebound - Extremities Exam Extremities Exam: Normal Inspection. absent: Pedal Edema - Back Exam Back Exam: absent: CVA tenderness (L), CVA tenderness (R) - Neurological Exam Neurological Exam: Alert, Awake, CN II-XII Intact, Normal Gait, Oriented x3 - Psychiatric Exam Psychiatric exam: Anxious - Skin Skin Exam: Normal Color Assessment and Plan - Assessment and Plan (Free Text) Plan: 1. Throat Mass EGD today with biopsy showed medium sized exophytic mass fouind on anterior surface of epiglottis, partially obstructing airway (see full report) Pt with throat mass, seen by ENT in [place] 07/2016. Patient refused biopsy at that time. CXR: Negative (prelim read) CT neck with IV contrast: shows supraepilgotic mass (see full report) UA negative D5 NS at 100cc/hr Heme/Onc Consult, Dr. Tavares, help appreciated GI Consult, Dr. Mckinney, help appreciated ENT Consult, Dr. Coy, help appreciated CEA 0.6 2. Dysphagia See workup above for Throat Mass Heme/Onc Consult, Dr. Tavares, help appreciated GI Consult, Dr. Mckinney, help appreciated D5 NS at 100cc/hr 3. Chronic Kidney Disease with Rt Kidney Transplant Azathioprine 50mg PO qd (home med) prednisone 5mg PO qd HOLD Enalapril 2.5mg PO qd (stopped by his physician 08/27/16 due to Hypotension). BUN/Cr 21/1.4 4. Anemia Hgb 10.2 f/u Fe, TIBC %sat 18, ferritin 37.9, B12 282, folate 5.6 f/u stool occult x2 5. Prophylactic Measures SCDs Hold anticoagulation due to hemoptysis FLD GI recommending peg tube to receive adequate nutrition during treatment course Boost supplements <Dione Hutton V - Last Filed: 10/23/16 21:25> Objective - Vital Signs/Intake and Output Vital Signs (last 24 hours): Temp Pulse Resp BP Pulse Ox 98.7 F 78 20 132/83 100 10/23/16 16:00 10/23/16 16:00 10/23/16 16:00 10/23/16 16:00 10/23/16 16:00 - Medications Medications: Current Medications Azathioprine (Imuran) 50 mg PO DAILY [facility] Last Admin: 10/23/16 09:55 Dose: 50 mg Ferrous Sulfate (Feosol) 325 mg PO DAILY [facility] Last Admin: 10/23/16 09:55 Dose: 325 mg Sodium Chloride (Sodium Chloride 0.45%) 1,000 mls @ 75 mls/hr IV .[id number] [facility] Prednisone (Prednisone Tab) 5 mg PO DAILY [facility] Last Admin: 10/23/16 09:55 Dose: 5 mg - Labs Labs: 10/23/16 06:52 10/23/16 06:52 PT 11.8 SECONDS (9.7-12.2) 10/23/16 06:52 INR 1.1 10/23/16 06:52 Attending/Attestation - Attestation I have personally seen and examined this patient.: Yes I have fully participated in the care of the patient.: Yes I have reviewed all pertinent clinical information, including history, physical exam and plan: Yes Notes (Text): Patient seen, examined, and case discussed with day-time resident. Patient seen status EGD& biopsy POD1 of supraglottic mass. Patient reports mild hemotypsis today. Patient awake, alert, oriented, speaking in clear sentences. Will need to await pathology. Patient permits us to speak with his brother regarding her health information, and does not want us to speak with his , given she has disability, and hard of hearing. Patient unable to indicate where he would like to follow-up in [place] or in [place] regarding for pathology and/or possible peg placement. Patient reports he is tolerating liquid feeds today. Follow-up heme-onc regarding outpatient plan for follow-up Per GI, patient stable for discharge Assessment/Plan 1. Supraglottic mass EGD (10/22/16) with biopsy showed medium sized exophytic mass fouind on anterior surface of epiglottis, partially obstructing airway (see full report)-->f/u biospy Pt with throat mass, seen by ENT in [place] 07/2016. Patient refused biopsy at that time. CXR: Negative (prelim read) CT neck with IV contrast (10/21/16): shows supraepilgotic mass (see full report) UA negative D5 NS at 100cc/hr Heme/Onc Consult, Dr. Tavares, help appreciated GI Consult, Dr. Mckinney, help appreciated-->signed out ENT consult, Dr. Coy, help appreciated-->no further intervention, patient s/p EGD and biopsy CEA 0.6 2. Dysphagia See workup above for Supraglottic mass Heme/Onc Consult, Dr. Tavares, help appreciated GI Consult, Dr. Mckinney, help appreciated D5 NS at 100cc/hr Tolerating liquid diet 3. History of Rt Kidney Transplant Azathiprine 50mg PO qdaily (home med) prednisone 5mg PO qdaily HOLD Enalapril 2.5mg PO qd (stopped by his physician 08/27/16 due to Hypotension). BUN/Cr 21/1.4 EGF>60 HIV: negative on IV fluids 4. Anemia Hgb 9.7 %sat 18, ferritin 37.9, B12 282, folate 5.6 + occult blood 5. Prophylactic Measures SCDs Hold anticoagulation due to hemoptysis CLD f/u GI for peg placement as outpatient
[2016-10-23 16:38] LABS: CYTOMEGALOVIRUS AB (IGM) <30.00 AU/mL
[2016-10-23] MEDS: Sodium Chloride 0.45% 1,000 ML IV SCH (22:13)
[2016-10-24 07:34] LABS: BASO % 0.6 % (0.0-2.0); EOS # 0.2 K/uL (0.0-0.7); EOS % 3.2 % (0.0-4.0); LYMPH # 1.9 K/uL (1.0-4.3); LYMPH % 26.6 % (20.0-40.0); MEAN CELL VOLUME 89.7 fL (80.0-94.0); MEAN CORPUSCULAR HEMOGLOBIN 29.6 pg (27.0-31.0); MEAN PLATELET VOLUME 7.6 fL (7.2-11.7); MONO # 0.9 K/uL (0.0-0.8); MONO % 12.5 % (0.0-10.0); NRBC % 0.1 % (0.0-2.0); RED CELL DISTRIBUTION WIDTH 15.2 % (11.5-14.5); WHITE BLOOD COUNT 7.1 K/uL (4.8-10.8)
[2016-10-24 08:02] LABS: CHLORIDE 100 mmol/L (98-107); SODIUM 140 mmol/L (132-148)
[2016-10-24 08:04] LABS: BILIRUBIN,TOTAL 0.5 mg/dL (0.2-1.3); GFR AFRICAN-AMERICAN > 60
[2016-10-24 08:05] LABS: ALB/GLOB RATIO 1.3 (1.0-2.1); ALKALINE PHOSPHATASE 57 U/L (38-126); ALT/SGPT 15 U/L (21-72); AST/SGOT 15 U/L (17-59); BLOOD UREA NITROGEN 11 mg/dL (9-20); CARBON DIOXIDE 28 mmol/L (22-30); GLUCOSE,RANDOM 100 mg/dL (75-110); PHOSPHOROUS 2.9 mg/dL (2.5-4.5); TOTAL PROTEIN 6.9 g/dL (6.3-8.3)
[2016-10-24 08:06] LABS: CALCIUM 8.9 mg/dl (8.6-10.4); MAGNESIUM 2.1 mg/dL (1.6-2.3)
--- NOTE | 2016-10-24 10:17 | CP.PCM.PN ---
Subjective - Date & Time of Evaluation Date of Evaluation: 10/24/16 Time of Evaluation: 10:16 - Subjective Subjective: Patient seen and examined at bedside. Objective - Vital Signs/Intake and Output Vital Signs (last 24 hours): Temp Pulse Resp BP Pulse Ox 98.2 F 76 20 127/79 100 10/24/16 08:00 10/24/16 08:00 10/24/16 08:00 10/24/16 08:00 10/24/16 08:00 Intake and Output: 10/24/16 10/24/16 06:59 18:59 Intake Total 600 Output Total 950 Balance -350 - Medications Medications: Current Medications Azathioprine (Imuran) 50 mg PO DAILY [facility] Last Admin: 10/23/16 09:55 Dose: 50 mg Ferrous Sulfate (Feosol) 325 mg PO DAILY [facility] Last Admin: 10/23/16 09:55 Dose: 325 mg Sodium Chloride (Sodium Chloride 0.45%) 1,000 mls @ 75 mls/hr IV .[id number] [facility] Last Admin: 10/23/16 22:13 Dose: 75 mls/hr Prednisone (Prednisone Tab) 5 mg PO DAILY [facility] Last Admin: 10/23/16 09:55 Dose: 5 mg - Labs Labs: 10/24/16 07:20 10/24/16 07:20 PT 11.8 SECONDS (9.7-12.2) 10/23/16 06:52 INR 1.1 10/23/16 06:52 Assessment and Plan - Assessment and Plan (Free Text) Assessment: 1. Throat Mass EGD today with biopsy showed medium sized exophytic mass fouind on anterior surface of epiglottis, partially obstructing airway (see full report) Pt with throat mass, seen by ENT in [place] 07/2016. Patient refused biopsy at that time. CXR: Negative (prelim read) CT neck with IV contrast: shows supraepilgotic mass (see full report) UA negative D5 NS at 100cc/hr Heme/Onc Consult, Dr. Tavares, help appreciated GI Consult, Dr. Mckinney, help appreciated ENT Consult, Dr. Coy, help appreciated CEA 0.6 2. Dysphagia See workup above for Throat Mass Heme/Onc Consult, Dr. Tavares, help appreciated GI Consult, Dr. Mckinney, help appreciated D5 NS at 100cc/hr 3. Chronic Kidney Disease with Rt Kidney Transplant Azathioprine 50mg PO qd (home med) prednisone 5mg PO qd HOLD Enalapril 2.5mg PO qd (stopped by his physician 08/27/16 due to Hypotension). BUN/Cr 21/.4 4. Anemia Hgb 10.2 f/u Fe, TIBC %sat 18, ferritin 37.9, B12 282, folate 5.6 f/u stool occult x2 5. Prophylactic Measures SCDs Hold anticoagulation due to hemoptysis FLD GI recommending peg tube to receive adequate nutrition during treatment course Boost supplements
--- NOTE | 2016-10-24 10:35 | CP.PCM.PN ---
Subjective - Date & Time of Evaluation Date of Evaluation: 10/24/16 Time of Evaluation: 10:30 - Subjective Subjective: Patient seen and examined in AM. He denies any new complaints. Tolerating liquids without incident. No nausea or vomiting. He denies any abdominal pain. No fever/chills. ROS otherwise negative in detail Objective - Vital Signs/Intake and Output Vital Signs (last 24 hours): Temp Pulse Resp BP Pulse Ox 98.2 F 76 20 127/79 100 10/24/16 08:00 10/24/16 08:00 10/24/16 08:00 10/24/16 08:00 10/24/16 08:00 Intake and Output: 10/24/16 10/24/16 06:59 18:59 Intake Total 600 Output Total 950 Balance -350 - Medications Medications: Current Medications Azathioprine (Imuran) 50 mg PO DAILY [facility] Last Admin: 10/23/16 09:55 Dose: 50 mg Ferrous Sulfate (Feosol) 325 mg PO DAILY [facility] Last Admin: 10/23/16 09:55 Dose: 325 mg Sodium Chloride (Sodium Chloride 0.45%) 1,000 mls @ 75 mls/hr IV .[id number] [facility] Last Admin: 10/23/16 22:13 Dose: 75 mls/hr Prednisone (Prednisone Tab) 5 mg PO DAILY [facility] Last Admin: 10/23/16 09:55 Dose: 5 mg - Labs Labs: 10/24/16 07:20 10/24/16 07:20 PT 11.8 SECONDS (9.7-12.2) 10/23/16 06:52 INR 1.1 10/23/16 06:52 - Constitutional Appears: No Acute Distress - Eye Exam Eye Exam: absent: Scleral icterus - ENT Exam ENT Exam: Mucous Membranes Moist - Respiratory Exam Respiratory Exam: Clear to Ausculation Bilateral - Cardiovascular Exam Cardiovascular Exam: +S1, +S2 - GI/Abdominal Exam Additional comments: abdomen soft, non tender to palpation, no rebound or guarding, bowel sounds present, no palpable mass - Extremities Exam Extremities Exam: absent: Pedal Edema - Neurological Exam Neurological Exam: Alert, Oriented x3 - Skin Skin Exam: Dry Assessment and Plan - Assessment and Plan (Free Text) Assessment: This is a 46 year old male with h/o transplanted kidney 1991 on immunosuppressants (azathioprine/prednisone) who presents with progressive dysphagia/weight loss secondary to large periepiglottic mass s/p EGD with biopsy. Plan: Continue supportive care Follow up pathology results Follow up ENT/oncology recommendations Patient to decide if further care will be pursued here or in [place] He will likely benefit from PEG placement for nutritional support during anticipated therapy Continue liquid diet as tolerated, add ensure if tolerates No further inpatient GI work up at this time, please call with any questions D/w Dr. Hutton
[2016-10-24] MEDS: Sodium Chloride 0.45% 1,000 ML IV SCH (11:06)
[2016-10-24 15:05] LABS: CYTOMEGALOVIRUS AB (IGG) <0.60 U/mL
[2016-10-24 15:42] VITALS: BP 116/74; PULSE 70; TEMP 98; O2SAT 99
--- NOTE | 2016-10-24 16:34 | CP.PCM.PN ---
Subjective - Date & Time of Evaluation Date of Evaluation: 10/24/16 Time of Evaluation: 14:30 - Subjective Subjective: He feels well, has been eating mostly semi-solid/ puree food and tolerating well. Denies pain. Objective - Vital Signs/Intake and Output Vital Signs (last 24 hours): Temp Pulse Resp BP Pulse Ox 98.0 F 70 20 116/74 99 10/24/16 15:00 10/24/16 15:00 10/24/16 15:00 10/24/16 15:00 10/24/16 15:00 Intake and Output: 10/24/16 10/24/16 06:59 18:59 Intake Total 600 1000 Output Total 950 Balance -350 1000 - Medications Medications: Current Medications Azathioprine (Imuran) 50 mg PO DAILY [facility] Last Admin: 10/24/16 10:55 Dose: 50 mg Ferrous Sulfate (Feosol) 325 mg PO DAILY [facility] Last Admin: 10/24/16 10:55 Dose: 325 mg Sodium Chloride (Sodium Chloride 0.45%) 1,000 mls @ 75 mls/hr IV .[id number] [facility] Last Admin: 10/24/16 11:06 Dose: 75 mls/hr Prednisone (Prednisone Tab) 5 mg PO DAILY [facility] Last Admin: 10/24/16 10:55 Dose: 5 mg - Labs Labs: 10/24/16 07:20 10/24/16 07:20 PT 11.8 SECONDS (9.7-12.2) 10/23/16 06:52 INR 1.1 10/23/16 06:52 - Head Exam Head Exam: ATRAUMATIC, NORMAL INSPECTION - Eye Exam Eye Exam: EOMI, PERRL - ENT Exam ENT Exam: Mucous Membranes Moist - Neck Exam Neck Exam: absent: Lymphadenopathy - Respiratory Exam Respiratory Exam: Clear to Ausculation Bilateral - Cardiovascular Exam Cardiovascular Exam: REGULAR RHYTHM - GI/Abdominal Exam GI & Abdominal Exam: Soft, Normal Bowel Sounds. 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 He wants to pursue further treatment here. Will schedule him for outpatient PET/CT scan. He will also need to see a radiation oncologist to plan possible concurrent chemo-RT. Will also f/u with ENT. He will need a PEG tube prior to starting treatment which can be arranged as outpatient with Dr. Mckinney. He understands the plan and all his questions were answered. Please see me in office next week. Felipe Tavares
--- NOTE | 2016-10-24 22:52 | CP.PCM.DIS ---
<Ashley Botello - Last Filed: 10/24/16 22:48> Provider - Provider Date of Admission: 10/21/16 20:28 Attending physician: Mohan Moise MD Primary care physician: PMD: Dr. Sanchez ([phone]) Consults: ENT: Dr. Coy GI: Dr. Stearns Hematology/Oncology: Dr. Tavares Time Spent in preparation of Discharge (in minutes): 31 Diagnosis - Discharge Diagnosis (1) Mass of throat Status: Acute Comment: please see hospital course (2) History of renal transplant Status: Chronic Comment: please see hospital course (3) Iron deficiency anemia Status: Chronic Comment: please see hospital course Hospital Course - Lab Results Lab Results: Most Recent Lab Values WBC 7.1 K/uL (4.8-10.8) 10/24/16 07:20 RBC 3.56 Mil/uL (4.40-5.90) L 10/24/16 07:20 Hgb 10.5 g/dL (12.0-18.0) L 10/24/16 07:20 Hct 32.0 % (35.0-51.0) L 10/24/16 07:20 MCV 89.7 fL (80.0-94.0) 10/24/16 07:20 MCH 29.6 pg (27.0-31.0) 10/24/16 07:20 MCHC 33.0 g/dL (33.0-37.0) 10/24/16 07:20 RDW 15.2 % (11.5-14.5) H 10/24/16 07:20 Plt Count 398 K/uL (130-400) 10/24/16 07:20 MPV 7.6 fL (7.2-11.7) 10/24/16 07:20 Neut % (Auto) 57.1 % (50.0-75.0) 10/24/16 07:20 Lymph % (Auto) 26.6 % (20.0-40.0) 10/24/16 07:20 Slope % (Auto) 12.5 % (0.0-10.0) H 10/24/16 07:20 Eos % (Auto) 3.2 % (0.0-4.0) 10/24/16 07:20 Baso % (Auto) 0.6 % (0.0-2.0) 10/24/16 07:20 Neut # 4.1 K/uL (1.8-7.0) 10/24/16 07:20 Lymph # 1.9 K/uL (1.0-4.3) 10/24/16 07:20 Slope # 0.9 K/uL (0.0-0.8) H 10/24/16 07:20 Eos # 0.2 K/uL (0.0-0.7) 10/24/16 07:20 Baso # 0.0 K/uL (0.0-0.2) 10/24/16 07:20 Retic Count 1.0 % (0.5-1.5) 10/23/16 06:52 PT 11.8 SECONDS (9.7-12.2) 10/23/16 06:52 INR 1.1 10/23/16 06:52 Sodium 140 mmol/L (132-148) 10/24/16 07:20 Potassium 4.0 mmol/L (3.6-5.2) 10/24/16 07:20 Chloride 100 mmol/L (98-107) 10/24/16 07:20 Carbon Dioxide 28 mmol/L (22-30) 10/24/16 07:20 Anion Gap 16 (10-20) 10/24/16 07:20 BUN 11 mg/dL (9-20) 10/24/16 07:20 Creatinine 1.3 MG/DL (0.8-1.5) 10/24/16 07:20 Est GFR ( Amer) > 60 10/24/16 07:20 Est GFR (Non-Af Amer) 59 10/24/16 07:20 Random Glucose 100 mg/dL (75-110) 10/24/16 07:20 Calcium 8.9 mg/dl (8.6-10.4) 10/24/16 07:20 Phosphorus 2.9 mg/dL (2.5-4.5) 10/24/16 07:20 Magnesium 2.1 mg/dL (1.6-2.3) 10/24/16 07:20 % Saturation 18 (20-55) L 10/22/16 10:57 Ferritin 37.9 ng/mL 10/22/16 06:30 Total Bilirubin 0.5 mg/dL (0.2-1.3) 10/24/16 07:20 AST 15 U/L (17-59) L 10/24/16 07:20 ALT 15 U/L (21-72) L 10/24/16 07:20 Alkaline Phosphatase 57 U/L (38-126) 10/24/16 07:20 Total Protein 6.9 g/dL (6.3-8.3) 10/24/16 07:20 Albumin 3.9 g/dL (3.5-5.0) 10/24/16 07:20 Globulin 3.0 gm/dL (2.2-3.9) 10/24/16 07:20 Albumin/Globulin Ratio 1.3 (1.0-2.1) 10/24/16 07:20 Carcinoembryonic Ag 0.6 ng/mL (0-3.0) 10/22/16 06:30 Vitamin B12 282 pg/mL (239-931) 10/22/16 06:30 Folate 5.6 ng/mL 10/22/16 06:30 Urine Color Colorless (YELLOW) 10/21/16 19:40 Urine Clarity Clear (Clear) 10/21/16 19:40 Urine pH 5.0 (5.0-8.0) 10/21/16 19:40 Ur Specific Weott 1.005 (1.003-1.030) 10/21/16 19:40 Urine Protein Negative mg/dL (NEGATIVE) 10/21/16 19:40 Urine Glucose (UA) Normal mg/dL (Normal) 10/21/16 19:40 Urine Ketones Negative mg/dL (NEGATIVE) 10/21/16 19:40 Urine Blood Negative (NEGATIVE) 10/21/16 19:40 Urine Nitrate Negative (NEGATIVE) 10/21/16 19:40 Urine Bilirubin Negative (NEGATIVE) 10/21/16 19:40 Urine Urobilinogen Normal mg/dL (0.2-1.0) 10/21/16 19:40 Ur Leukocyte Esterase Neg Rodrigo/uL (Negative) 10/21/16 19:40 Urine WBC (Auto) < 1 /hpf (0-5) 10/21/16 19:40 Ur Squamous Epith Cells < 1 /hpf (0-5) 10/21/16 19:40 Stool Occult Blood Positive (NEGATIVE) H 10/23/16 06:51 CMV IgG Ab <0.60 U/mL 10/22/16 10:57 CMV IgM Ab <30.00 AU/mL 10/22/16 10:57 HSV I IgG Ab <0.90 index 10/22/16 10:57 HSV II IgG <0.90 index 10/22/16 10:57 HIV 1&2 Antibody Screen Negative (NEGATIVE) 10/22/16 10:57 - Hospital Course Hospital Course: On admission: CC: Dysphagia and mild throat pain x 2 months. HPI: 46 y/o male with PMHx CKD with Rt Kidney transplant - presents c/o progressive dysphagia to solids for the past 2 months. He states it became increasingly difficult to swallow solids, and has only been able to consume liquids for the past 10 days. He reports neck pain left/lateral to the cricoid, most notable to palpation and while swallowing, with associated intermittent hemoptysis for the last 2 months. Patient is from [place], and reports seeing an ENT physician 2 months ago, who explained he may have a throat tumor. The patient refused biopsy at that time, as his is in [place] and he requires her care. Instead, he decided to come to [place] where his brother lives. Patient notes going to a hospital in [place], was told that he needed immediate admission, and returned to [place]. Admits to dysphagia, sore throat, cough with intermittent hemoptysis, and weight loss (8lbs over 2 months) . Denies f/c, headache, change in vision, chest pain, SOB, abdominal pain, n/v, d/c, dysuria, or any additional complaints. PMHx: CKD with Rt Kidney transplant, Fracture of L 4th digit () PSHx: right kidney transplant Meds: Prednisone 5mg PO qd, Ferrous sulfate 325mg PO qd, Azithiprine 50mg PO qd Allergies: NKDA FamHx: unknown SocHx: denies Tobacco, ETOH, or drug use. Lives in [place], is current staying with brother in [place] for past 2 weeks. Works in IT. PMD: Dr. Sanchez ([phone]) During hospital course: CXR - No acute disease CT neck with IV contrast (10/21/16): shows supraepilgotic mass (see full report) EGD (10/22/16) with biopsy showed medium sized exophytic mass fouind on anterior surface of epiglottis, partially obstructing airway (see full report)-->f/u biospy Supraglottic mass EGD (10/22/16) with biopsy showed medium sized exophytic mass fouind on anterior surface of epiglottis, partially obstructing airway (see full report)-->f/u biospy Pt with throat mass, seen by ENT in [place] 07/2016. Patient refused biopsy at that time. CXR: Negative (prelim read) CT neck with IV contrast (10/21/16): shows supraepilgotic mass (see full report) UA negative Patient was started on D5 NS at 100cc/hr Heme/Onc (Dr. Tavares), GI (Dr. Stearns), and ENT (Dr. Coy) were consulted. Patient awaiting biopsy report. Patient decided to remain in [place] for further management of supraglottic management. CEA 0.6 Dysphagia workup above for Supraglottic mass Patient found to tolerate liquid diet following biopsy. Instructed patient to drink liquids and clear soups. He was instructed to cut solids into small piece if he attempts to eat. Patient informed he will need to follow-up with GI for possible placement of PEG tube. History of Rt Kidney Transplant Immunomodulators Azathiprine 50mg PO daily and prednisone 5mg PO daily Enalapril 2.5mg PO qd was stopped by his physician on 08/27/16 due to Hypotension. BUN/Cr 11/1.3 EGF>60 HIV: negative on IV fluids Anemia Hgb 10.5 %sat 18, ferritin 37.9, B12 282, folate 5.6 + occult blood Continue Ferrous Sulfate as outpatient. Instructed to follow-up with Dr. Tavares. Prophylactic Measures SCDs Anticoagulation held due to hemoptysis Please note this is summary of patient course. For full details, please see patient chart. Discharge Instructions: Patient medically stable for discharge. Patient instructed to take the following medications as prescribed: Azathioprine 50 mg tab by mouth daily Prednisone 5 mg tab by mouth daily Enalapril 2.5 mg tab by mouth daily Ferrous Sulfate 325 mg tab by mouth daily Patient instructed to follow-up with hematology/oncology, Dr. Tavares, early next week (10/27/16) following discharge from hospital. Dr Tavares's Office number is [phone]. Patient instructed to follow-up with gastroenterology, Dr. Stearns, for possible placement of PEG tube within one week of discharge from the hospital. Patient instructed to follow-up with primary care, Dr. Espinoza, for establishment of care and follow-up. Patient will need to be referred to a wood repatcher as he has history of kidney transplant. Patient instructed to return to the emergency department if symptoms recur. Patient given detailed instructions at bedside. Patient understands and agrees. - Date & Time of H&P Date of H&P: 10/21/16 Time of H&P: 21:02 Discharge Exam - Head Exam Head Exam: ATRAUMATIC, NORMAL INSPECTION - Eye Exam Eye Exam: EOMI, Normal appearance - ENT Exam ENT Exam: Mucous Membranes Moist - Neck Exam Additional comments: no tenderness noted - Respiratory Exam Respiratory Exam: Clear to PA & Lateral, NORMAL BREATHING PATTERN. absent: Rales, Rhonchi, Wheezes - Cardiovascular Exam Cardiovascular Exam: +S1, +S2. absent: Tachycardia - GI/Abdominal Exam GI & Abdominal Exam: Normal Bowel Sounds. absent: Distended, Firm, Guarding - Extremities Exam Extremities exam: pedal pulses present - Neurological Exam Neurological exam: Alert, Oriented x3, Reflexes Normal - Psychiatric Exam Psychiatric exam: Normal Affect, Normal Mood - Skin Skin Exam: Dry, Intact, Normal Color, Warm Discharge Plan - Discharge Medications Prescriptions: azaTHIOprine [Imuran] 50 mg PO DAILY #30 tab Enalapril Maleate [Vasotec] 2.5 mg PO DAILY #30 Ferrous Sulfate [Iron] 325 mg PO DAILY #30 predniSONE [predniSONE Tab] 5 mg PO DAILY #30 - Follow Up Plan Condition: GUARDED Disposition: HOME/ ROUTINE Instructions: Iron Supplements (By mouth), Azathioprine (By mouth), Enalapril ( By mouth), Prednisone (By mouth) Additional Instructions: Patient medically stable for discharge. Patient instructed to take the following medications as prescribed: Azathioprine 50 mg tab by mouth daily Prednisone 5 mg tab by mouth daily Enalapril 2.5 mg tab by mouth daily Ferrous Sulfate 325 mg tab by mouth daily Patient instructed to follow-up with hematology/oncology, Dr. Tavares, early next week (10/27/16) following discharge from hospital. Dr Tavares's Office number is [phone]. Patient instructed to follow-up with gastroenterology, Dr. Stearns, for possible placement of PEG tube within one week of discharge from the hospital. Patient instructed to follow-up with primary care, Dr. Espinoza, for establishment of care and follow-up. Patient will need to be referred to a wood repatcher as he has history of kidney transplant. Patient instructed to return to the emergency department if symptoms recur. Patient given detailed instructions at bedside. Patient understands and agrees. Referrals: Andi Coy MD [Staff Provider] - Isaura Stearns MD [Staff Provider] - Jamie Espinoza MD [Staff Provider] - Chaitanya PETERSON,MD Felipe [Staff Provider] - <Dione Hutton V - Last Filed: 10/25/16 16:29> Provider - Provider Date of Admission: 10/21/16 20:28 Attending physician: Mohan Moise MD Hospital Course - Lab Results Lab Results: Most Recent Lab Values WBC 7.1 K/uL (4.8-10.8) 10/24/16 07:20 RBC 3.56 Mil/uL (4.40-5.90) L 10/24/16 07:20 Hgb 10.5 g/dL (12.0-18.0) L 10/24/16 07:20 Hct 32.0 % (35.0-51.0) L 10/24/16 07:20 MCV 89.7 fL (80.0-94.0) 10/24/16 07:20 MCH 29.6 pg (27.0-31.0) 10/24/16 07:20 MCHC 33.0 g/dL (33.0-37.0) 10/24/16 07:20 RDW 15.2 % (11.5-14.5) H 10/24/16 07:20 Plt Count 398 K/uL (130-400) 10/24/16 07:20 MPV 7.6 fL (7.2-11.7) 10/24/16 07:20 Neut % (Auto) 57.1 % (50.0-75.0) 10/24/16 07:20 Lymph % (Auto) 26.6 % (20.0-40.0) 10/24/16 07:20 Slope % (Auto) 12.5 % (0.0-10.0) H 10/24/16 07:20 Eos % (Auto) 3.2 % (0.0-4.0) 10/24/16 07:20 Baso % (Auto) 0.6 % (0.0-2.0) 10/24/16 07:20 Neut # 4.1 K/uL (1.8-7.0) 10/24/16 07:20 Lymph # 1.9 K/uL (1.0-4.3) 10/24/16 07:20 Slope # 0.9 K/uL (0.0-0.8) H 10/24/16 07:20 Eos # 0.2 K/uL (0.0-0.7) 10/24/16 07:20 Baso # 0.0 K/uL (0.0-0.2) 10/24/16 07:20 Retic Count 1.0 % (0.5-1.5) 10/23/16 06:52 PT 11.8 SECONDS (9.7-12.2) 10/23/16 06:52 INR 1.1 10/23/16 06:52 Sodium 140 mmol/L (132-148) 10/24/16 07:20 Potassium 4.0 mmol/L (3.6-5.2) 10/24/16 07:20 Chloride 100 mmol/L (98-107) 10/24/16 07:20 Carbon Dioxide 28 mmol/L (22-30) 10/24/16 07:20 Anion Gap 16 (10-20) 10/24/16 07:20 BUN 11 mg/dL (9-20) 10/24/16 07:20 Creatinine 1.3 MG/DL (0.8-1.5) 10/24/16 07:20 Est GFR ( Amer) > 60 10/24/16 07:20 Est GFR (Non-Af Amer) 59 10/24/16 07:20 Random Glucose 100 mg/dL (75-110) 10/24/16 07:20 Calcium 8.9 mg/dl (8.6-10.4) 10/24/16 07:20 Phosphorus 2.9 mg/dL (2.5-4.5) 10/24/16 07:20 Magnesium 2.1 mg/dL (1.6-2.3) 10/24/16 07:20 % Saturation 18 (20-55) L 10/22/16 10:57 Ferritin 37.9 ng/mL 10/22/16 06:30 Total Bilirubin 0.5 mg/dL (0.2-1.3) 10/24/16 07:20 AST 15 U/L (17-59) L 10/24/16 07:20 ALT 15 U/L (21-72) L 10/24/16 07:20 Alkaline Phosphatase 57 U/L (38-126) 10/24/16 07:20 Total Protein 6.9 g/dL (6.3-8.3) 10/24/16 07:20 Albumin 3.9 g/dL (3.5-5.0) 10/24/16 07:20 Globulin 3.0 gm/dL (2.2-3.9) 10/24/16 07:20 Albumin/Globulin Ratio 1.3 (1.0-2.1) 10/24/16 07:20 Carcinoembryonic Ag 0.6 ng/mL (0-3.0) 10/22/16 06:30 Vitamin B12 282 pg/mL (239-931) 10/22/16 06:30 Folate 5.6 ng/mL 10/22/16 06:30 Urine Color Colorless (YELLOW) 10/21/16 19:40 Urine Clarity Clear (Clear) 10/21/16 19:40 Urine pH 5.0 (5.0-8.0) 10/21/16 19:40 Ur Specific Weott 1.005 (1.003-1.030) 10/21/16 19:40 Urine Protein Negative mg/dL (NEGATIVE) 10/21/16 19:40 Urine Glucose (UA) Normal mg/dL (Normal) 10/21/16 19:40 Urine Ketones Negative mg/dL (NEGATIVE) 10/21/16 19:40 Urine Blood Negative (NEGATIVE) 10/21/16 19:40 Urine Nitrate Negative (NEGATIVE) 10/21/16 19:40 Urine Bilirubin Negative (NEGATIVE) 10/21/16 19:40 Urine Urobilinogen Normal mg/dL (0.2-1.0) 10/21/16 19:40 Ur Leukocyte Esterase Neg Rodrigo/uL (Negative) 10/21/16 19:40 Urine WBC (Auto) < 1 /hpf (0-5) 10/21/16 19:40 Ur Squamous Epith Cells < 1 /hpf (0-5) 10/21/16 19:40 Stool Occult Blood Positive (NEGATIVE) H 10/23/16 06:51 CMV IgG Ab <0.60 U/mL 10/22/16 10:57 CMV IgM Ab <30.00 AU/mL 10/22/16 10:57 HSV I IgG Ab <0.90 index 10/22/16 10:57 HSV II IgG <0.90 index 10/22/16 10:57 HIV 1&2 Antibody Screen Negative (NEGATIVE) 10/22/16 10:57 Attending/Attestation - Attestation I have personally seen and examined this patient.: Yes I have fully participated in the care of the patient.: Yes I have reviewed all pertinent clinical information, including history, physical exam and plan: Yes Notes (Text): This is late computer entry for 10/24/16. Patient seen, examined, and case discussed with day-time resident. Patient seen status EGD& biopsy POD2 of supraglottic mass. Patient awake, alert , oriented, speaking in clear sentences. Will need to await pathology. Patient reports he has decided to pursue treatment here in [place] since he has support here as opposed to in [place] Patient reports he is tolerating liquid feeds today. Discussed with GI, patient stable for discharge. Discussed with heme-onc, follow-up pathology and further treatment options. Patient recommended to establish care in [place]. Patient medically stable for discharge. Patient instructed to take the following medications as prescribed: Azathioprine 50 mg tab by mouth daily Prednisone 5 mg tab by mouth daily Enalapril 2.5 mg tab by mouth daily Ferrous Sulfate 325 mg tab by mouth daily Patient instructed to follow-up with hematology/oncology, Dr. Tavares, early next week (10/27/16) following discharge from hospital. Dr Tavares's Office number is [phone]. Patient instructed to follow-up with gastroenterology, Dr. Stearns, for possible placement of PEG tube within one week of discharge from the hospital. Patient instructed to follow-up with primary care, Dr. Espnioza, for establishment of care and follow-up. Patient will need to be referred to a wood repatcher as he has history of kidney transplant. Patient instructed to return to the emergency department if symptoms recur. Patient given detailed instructions at bedside. Patient understands and agrees. This is a summary of patient's hospitalization. Please see EMR for further details.
== END 2016-10-24 19:00 | disposition home or self-care (01) | DRG 147 ==
LOC: C.ER 16:17 → C.9E 20:28 → C.3T 21:33
PROVIDERS: ADMIT Family Medicine; ATTEND Family Medicine
PROC: 0DJ08ZZ Inspection of Upper Intestinal Tract, Via Natural or Artificial Opening Endoscopic (ICD-10-PCS; 2016-10-22)
PROC: 0CBR8ZX Excision of Epiglottis, Via Natural or Artificial Opening Endoscopic, Diagnostic (ICD-10-PCS; principal; 2016-10-22 13:25)
DX: C10.1 Malignant neoplasm of anterior surface of epiglottis (principal); Z94.0 Kidney transplant status; I95.9 Hypotension, unspecified; R04.2 Hemoptysis; D50.9 Iron deficiency anemia, unspecified; N18.9 Chronic kidney disease, unspecified